=== PATIENT | male | born 1970 | race Caucasian/White ===

== ENCOUNTER 2016-04-13 18:52 | Emergency (ER) | payer OTHER ==
[~2016-04-13] VITALS: Ht 195.5 cm; Wt 97.5 kg
[2016-04-13] MEDS ORDERED: PENICILLIN250 MG PO (19:12)
[2016-04-13] MEDS ORDERED: AUGMENTIN 875-875 MG PO (20:02)
[2016-04-13] MEDS ORDERED: PERCOCET 325 MG1 TA2 PO (20:02)
== END 2016-04-13 20:37 | disposition home or self-care (01) ==
LOC: ED 18:52
DX: S61.411A Laceration without foreign body of right hand, initial encounter (principal); Z79.899 Other long term (current) drug therapy; F17.200 Nicotine dependence, unspecified, uncomplicated; W54.0XXA Bitten by dog, initial encounter; Y93.9 Activity, unspecified; Y92.9 Unspecified place or not applicable; Y99.9 Unspecified external cause status

== ENCOUNTER 2018-12-02 15:13 | Emergency (ER) | payer OTHER ==
[~2018-12-02] VITALS: Ht 198.1 cm; Wt 95.3 kg
[~2018-12-02 15:13] MED LIST: AUGMENTIN 875-875 MG PO; PENICILLIN250 MG PO; PERCOCET 325 MG1 TA2 PO
[2018-12-02] MEDS ORDERED: CEPHALEXIN500 M1 PO (16:36)
[2018-12-02] MEDS ORDERED: NAPROSYN500 MG PO (16:37)
[2018-12-02] MEDS ORDERED: POLYSPORIN OINT15 GM T (16:37)
[2018-12-02] MEDS ORDERED: TYLENOL325 M1 PO (16:37)
== END 2018-12-02 17:31 | disposition home or self-care (01) ==
LOC: ED 15:13
DX: S60.552A Superficial foreign body of left hand, initial encounter (principal); F17.200 Nicotine dependence, unspecified, uncomplicated; W45.0XXA Nail entering through skin, initial encounter; Y93.89 Activity, other specified; Y92.89 Other specified places as the place of occurrence of the external cause; Y99.8 Other external cause status

== ENCOUNTER → 2020-03-04 | Outpatient (CLI) | payer BC ==
[~2020-03-04] MED LIST changes: +CEPHALEXIN500 M1 PO; +NAPROSYN500 MG PO; +POLYSPORIN OINT15 GM T; +TYLENOL325 M1 PO
== END | disposition home or self-care (01) ==
LOC: COVID19 12:16
PROVIDERS: ATTEND Physician Assistant
DX: R05 Cough (principal); Z20.828 Contact with and (suspected) exposure to other viral communicable diseases

== ENCOUNTER 2020-12-16 15:58 | Emergency (ER) | payer BC | END 2020-12-16 18:40 | disposition home or self-care (01) | LOC: ED 15:58 | DX: S60.021A Contusion of right index finger without damage to nail, initial encounter (principal); W23.0XXA Caught, crushed, jammed, or pinched between moving objects, initial encounter; Y93.89 Activity, other specified; Y92.89 Other specified places as the place of occurrence of the external cause; Y99.9 Unspecified external cause status ==